=== PATIENT | female | born 1945 | race Caucasian/White ===

== ENCOUNTER → 2018-06-25 | Outpatient (CLI) | payer MEDICARE ==
[2017-05-01 09:19] VITALS: BMI 29.9
[~2018-06-25] MED LIST: BUDE10.25 PO; CELE-1 PO; DEN60I IM; DOCU-416 PO; HYDR-653 PO; LOR5/325 PO; OMEP-125 PO; OXYB15TA17 PO; PROM25AM11 IVP
--- NOTE | 2018-06-25 15:09 | RADIOLOGY IMAGING REPORT ---
[place] [facility] [place] NAME: Nanci Laurent : 1945 MR: [id number] V: [id number] EXAM DATE: ORDERING PHYSICIAN: QUAN HERR TECHNOLOGIST: Location: [facility] Patient: Nanci Laurent : 1945 Visit/Account:[id number] Date of Sevice: 06/25/2018 DEXA Scan Clinical history: Screening, osteoporosis. Comparison: DEXA scan from 05/11/2016. Hip: Bone mineral density measured in the right total hip region correlates with a Z score of -0.9 and a T score of -2.4 which is consistent with osteopenia as defined by the World Health Organization. The corresponding risk of fracture in the right hip is 4-6 times increased compared to a young adult refe rence population. This value has decreased by 0.7% since the prior study. More than 5% change is co nsidered significant Bone mineral density in the right femoral neck is -2.7 g/sq cm HIP: Bone mineral density (BMD) measured in the LEFT total hip region correlates with a Z-score -1 and a T -score of -2.4 which is osteopenia as defined by the World Health Organization. The corresponding ri sk of fracture in the hip is 4-6 times increased compared to a young adult reference population. This value has increased by 6.3 % since the prior study. More than 5% change is considered significant. T score left femoral neck -2.3 Bone mineral density (BMD) measured in the Femoral Neck region measures 0.713 g/cm?. IMPRESSION: 1. Right total hip: Osteopenia. There has been 0.7% decrease in the bone mineral density since the p revious exam. 2. Left Total Hip: Stepanian. There has been 6.3% increase in the bone mineral density since the pr evious exam. 3. Femoral Neck: Bone Mineral Density is 0.713 g/cm? The next DEXA scan of this patient should include the following sites: Right hip and the left hip. FRAX? WHO Fracture Risk Assessment Tool link: <http://www.shef.ac.uk/FRAX/tool.jsp?locationValue=9> PLEASE NOTE: 1) The World Health Organization defines low BMD as follows: T-score Normal > -1 Osteopenia < -1 and > -2.5 Osteoporosis < -2.5 without fractures Established osteoporosis < -2.5 with fractures 2) In general, you may wish to consider: Diagnosis Treatment Follow-up DEXA Normal BMD Prevention 2-3 years Osteopenia Prevention/therapy 1-2 years Osteoporosis Therapy Yearly 3) Fracture risk estimated from the T-score is more accurate for vertebral fractures (often spontane ous) than for hip fractures. Report Dictated By: Roxy Oshea MD at 06/25/2018 3:01 PM Report E-Signed By: Roxy Oshea MD at 06/25/2018 3:05 PM BENN:PARUL
--- NOTE | 2018-06-26 13:34 | RADIOLOGY IMAGING REPORT ---
[place] [facility] [place] EMMA MEEK : [id number] MR: [id number] V: [id number] EXAM DATE: [id number] ORDERING PHYSICIAN: QUAN HERR TECHNOLOGIST: Claritza Salinas PROCEDURE:BILATERAL DIGITAL SCREENING MAMMOGRAM WITH CAD ASSISTED INTERPRETATION & 3D TOMOSYNTHESIS COMPARISON:Prior mammograms 05/11/16, 10/23/13, 08/22/12. INDICATIONS:SCREENING FINDINGS: A small amount of fibroglandular tissue is seen throughout the breasts. The parenchymal pattern has remained stable allowing for difference in mammographic technique & patient positioning. There is no evidence of malignant appearing mass, malignant appearing calcifications or other secondary sign of malignancy in either breast. DIAGNOSTIC CATEGORY 1--NEGATIVE. RECOMMENDATIONS: ROUTINE MAMMOGRAM AND CLINICAL EVALUATION. IMPRESSION: BIRADS 1: Negative. No significant abnormality is seen. Dictated by: Roxy Oshea M.D. on 06/25/2018 at 17:01 Transcribed by: KEYONA on 06/26/2018 at 8:22 Approved by: Roxy Oshea M.D. on 06/26/2018 at 13:33 [facility]
== END ==
LOC: MAMO 01:11
PROVIDERS: ATTEND Nurse Practitioner Family
DX: Z13.820 Encounter for screening for osteoporosis (principal); Z12.31 Encounter for screening mammogram for malignant neoplasm of breast; M85.88 Other specified disorders of bone density and structure, other site
CPT/HCPCS: 77063; 77067; 77080

== ENCOUNTER → 2018-07-15 | Outpatient (CLI) | payer MEDICARE ==
[2017-05-01 09:19] VITALS: BMI 29.9
--- NOTE | 2018-07-15 13:54 | RADIOLOGY IMAGING REPORT ---
FACILITY: [facility] [place] PATIENT NAME: Nanci Laurent : 1945 MR: [id number] V: [id number] EXAM DATE: ORDERING PHYSICIAN: CEDRIC ZARAGOZA TECHNOLOGIST: Location: [facility] Patient: Nanci Laurent : 1945 Visit/Account:[id number] Date of Sevice: 07/15/2018 Exam type: SHOULDER MIN 2 VIEWS RIGHT History: Fall 07/12/2018, pain in right shoulder Comparison: Findings: There is no evidence of acute fracture or dislocation involving the right shoulder. There are modera te degenerative changes at the right AC joint although no evidence of a right AC joint separation.. IMPRESSION: 1. No evidence of acute fractures condition involving the right shoulder Report Dictated By: Roxy Oshea MD at 07/15/2018 1:46 PM Report E-Signed By: Roxy Oshea MD at 07/15/2018 1:49 PM WSN:[email or web address]
== END ==
LOC: RAD 11:53
PROVIDERS: ATTEND Nurse Practitioner Family
DX: M25.511 Pain in right shoulder (principal)